=== PATIENT | male | born 1965 ===

== ENCOUNTER 2018-09-10 14:01 | Outpatient (CLI) | payer OTHER ==
[~2018-09-10] VITALS: Ht 167.6 cm; Wt 72.6 kg
== END 2018-09-10 14:15 | disposition home or self-care (01) ==
LOC: OFIC 805 14:01
DX: K21.0 Gastro-esophageal reflux disease with esophagitis (principal); R09.81 Nasal congestion

== ENCOUNTER 2018-10-15 08:46 | Outpatient (CLI) | payer OTHER | END 2018-10-15 17:00 | disposition home or self-care (01) | LOC: RX STUDY 08:46 | DX: R13.19 Other dysphagia (principal) ==